=== PATIENT | female | born 1975 | race Caucasian/White ===

== ENCOUNTER 2017-07-28 16:18 | Emergency (ER) | payer BC ==
[2017-07-28] MEDS: FAMOTIDINE 20 MG TAB PO (17:35)
[2017-07-28] MEDS: METHYLPREDNISOLONE 125 MG INJ IM (17:35)
== END 2017-07-28 18:04 | disposition home or self-care (01) ==
LOC: FTE 16:18
DX: S60.460A Insect bite (nonvenomous) of right index finger, initial encounter (principal); W57.XXXA Bitten or stung by nonvenomous insect and other nonvenomous arthropods, initial encounter; Y92.9 Unspecified place or not applicable
CPT/HCPCS: 96372; 99284-25

== ENCOUNTER 2017-11-08 03:47 | Emergency (ER) | payer BC | END 2017-11-08 04:31 | disposition home or self-care (01) | LOC: FTE 03:47 | DX: J02.9 Acute pharyngitis, unspecified (principal) | CPT/HCPCS: 99283; Z7502 ==

== ENCOUNTER 2018-04-28 16:47 | Emergency (ER) | payer BC ==
[2018-04-28] MEDS: ACETAMINOPHEN 500 MG TAB PO (18:03)
[2018-04-28] MEDS: IBUPROFEN 600 MG TAB PO (18:04)
[2018-04-28] MEDS: DEXAMETHASONE 10 MG/ML 1 ML INJ IM (18:04)
== END 2018-04-28 19:45 | disposition home or self-care (01) ==
LOC: FTE 16:47
DX: J10.1 Influenza due to other identified influenza virus with other respiratory manifestations (principal)
CPT/HCPCS: 87400; 96372; 99284-25